=== PATIENT | male | born 1970 | race Caucasian/White ===

== ENCOUNTER 2021-01-04 06:40 | Day surgery (SDC) | payer MEDICARE ==
[2021-01-03 12:47] VITALS: BMI 37.3
[2021-01-04 07:21] VITALS: RESP 16; TEMP 98.3
[2021-01-04] MEDS ORDERED: LACTATED RINGERS 1,000 ML IV ONE (07:27)
[2021-01-04] MEDS ORDERED: LIDOCAINE 1% (10MG/ML) FOR IV START INTRADERMA ONE (07:29)
[2021-01-04 07:31] LABS: Glucose,Whole Blood 178 mg/dL (75-99)
[2021-01-04] MEDS ORDERED: PROPOFOL 10 MG/ML 20 ML VIAL IV ONE (07:43)
[2021-01-04] MEDS ORDERED: LIDOCAINE 1% INJ 10MG/ML (20 ML MDV) ONE (07:43)
--- NOTE | 2021-01-04 07:56 | P.PCN ---
Date of Procedure: 01/04/21 Procedure(s) Performed: BRIEF HISTORY: Patient is a 50-year-old, pleasant, 8 male scheduled for an upper endoscopy as a part of evaluation of epigastric pain for the last 3 months duration. He does complain of some nausea but no emesis. He was recently started on omeprazole 20 mg daily and symptoms are gradually improving.. PROCEDURE PERFORMED: Esophagogastroduodenoscopy with biopsy. PREOPERATIVE DIAGNOSIS: Epigastric pain for the last 3 months duration. IV sedation per anesthesia. PROCEDURE: After informed consent was obtained, the patient was brought into the endoscopy unit. IV sedation was administered by Anesthesia under continuous monitoring. Initially the Olympus GIF-140 video endoscope was inserted into the mouth. Esophagus intubated without any difficulty. It was gradually advanced into the stomach and duodenum and carefully examined. The bulb and the second part of the duodenum appeared normal. Biopsies were done from the duodenum to rule out celiac disease The scope at this time was withdrawn to the stomach, adequately insufflated with air, and upon careful examination, mucosa of the antrum and mild gastritis and biopsies were done from this area. The, body, cardia and the fundus appeared normal. The scope was then withdrawn into the esophagus. The GE junction was located at 39 cm from the incisors. The esophagus appeared normal. There were no erosions or ulcerations seen , biopsies were done from the distal esophagus and the patient tolerated the procedure well. IMPRESSION: 1. Mild antral gastritis. 2. No evidence of esophagitis or peptic ulcer disease. RECOMMENDATIONS: The findings of this examination were discussed with the patient as well as his family. He was advised to follow with the biopsy results.. Continue with omeprazole 20 mg daily and follow antireflux measures.
[2021-01-04 08:00] VITALS: BP 143/87
[2021-01-04 08:15] VITALS: PULSE 73
== END 2021-01-04 08:40 | disposition home or self-care (01) ==
LOC: ORWHC2ENDO 06:40
PROVIDERS: ATTEND Internal Medicine Gastroenterology
DX: K29.70 Gastritis, unspecified, without bleeding (principal)
CPT/HCPCS: 43239; J2001; J2704; 88305